=== PATIENT | male | born 1940 | race Caucasian/White ===

== ENCOUNTER 2023-07-19 23:33 | Inpatient (IN) | payer OTHER, SELFPAY ==
[2023-07-19 19:48] VITALS: BP 177/80
[2023-07-19 20:08] LABS: % Basophils 0.6 % (0-2); % Eosinophils 3.9 % (0-6); % Immature Granulocytes 0.2 % (0-0.5); % Lymphocytes 25.4 % (20.5-51.1); % Monocytes 10.8 % (1.7-9.3); % Neutrophils 59.1 % (42.2-75.2); Absolute Eosinophils 0.2 10^3/uL (0-0.7); Absolute Lymphocytes 1.4 10^3/uL (1.2-3.4); Absolute Monocytes 0.6 10^3/uL (0.1-0.6); Absolute Neutrophils 3.2 10^3/uL (1.4-6.5); Hematocrit 38.3 % (39.0-52.0); Hemoglobin 13.4 g/dL (13.0-18.0); Mean Corpuscular Hgb 31.4 pg (27.0-31.0); Mean Corpuscular Volume 89.7 fL (80.0-94.0); Mean Platelet Volume 8.8 fL (7.4-10.4); Nucleated Red Blood Cells % 0 % (-); Platelet Count 173 10^3/uL (130-400); Red Blood Cell Count 4.27 10^6/uL (4.70-6.10); White Blood Cell Count 5.4 10^3/uL (4.8-10.8)
[2023-07-19 20:29] VITALS: BMI 21.0
[2023-07-19 20:31] LABS: Troponin I < 0.012 ng/ml
[2023-07-19 20:33] LABS: ALT (SGPT) 22 U/L (0-50); AST (SGOT) 35 U/L (17-59); Albumin 4.4 g/dl (3.5-5.0); Alkaline Phosphatase 78 U/L (38-126); Blood Urea Nitrogen 25 mg/dl (9-20); Calcium 9.8 mg/dl (8.4-10.2); Carbon Dioxide 25 mmol/L (22-30); Chloride 101 mmol/L (98-107); Estimated Creatinine Clearance 45 ml/min; Glucose 92 mg/dl (70-99); Potassium 4.5 mmol/L (3.5-5.1); Sodium 136 mmol/L (135-145); Total Bilirubin 0.8 mg/dl (0.2-1.3); Total Protein 7.2 g/dl (6.3-8.2); eGFR > 60.00
--- NOTE | 2023-07-19 22:43 | ED.GENMED ---
History of Present Illness
General
Chief Complaint: Head Injury
Source: patient, spouse and family
Exam Limitations: none
Time Seen by Provider: 07/19/23 21:35
Nursing documentation reviewed up to this point in time: agreed with
Travel History
Have you had any contact with someone who has COVID-19?: No
Do you have any symptoms of coronavirus? Fever > 100 degrees, chills, cough, shortness of breath, sore throat, loss of taste or smell, muscle aches, or headache?: No
History of Present Illness
History of Present Illness:
83-year-old male with past medical history of left carotid enterectomy hypercholesteremia hypertension CAD Crohn's disease gout CVA, bradycardia presents to the ER for evaluation. Patient prior to arrival was sitting at his dinner table and
fainted falling out of his chair hitting his head on the wood floor. reports he was only out for few seconds. Patient is not able to describe what he was feeling. He denied feeling chest pain or shortness of breath he did not feel like he
was going to pass out. 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
Past History
Past History
ED Past Medical History: CAD and HTN
ED Past Surgical History: Cholecystectomy
Social History
Tobacco: Non-smoker
Review of Systems
Review of Systems
Allergies reviewed?: Yes
Other source history: family
All Other Systems: ROS reviewed and negative except as documented in HPI and ROS
Constitutional: Reports no symptoms; Denies fever, fatigue or chills
Respiratory: Reports no symptoms
Cardiac: Reports syncope; Denies chest pain, diaphoresis or palpitations
ABD/GI: Reports no symptoms
: Reports no symptoms
Musculoskeletal: Reports no symptoms
Skin: Reports no symptoms
Neurological: Reports headache; Denies dizzy, weakness or numbness
Psychiatric: Reports no symptoms
Phy Exam
General Physical Exam
General Presentation: no apparent distress
General age: appears stated age
General Skin: warm and dry
General Habitus: normal
General Mental: alert
General Hydration: appears well hydrated
Cardiovascular Exam
Cardiovascular Exam: regular rate/rhythm, no murmur and normal peripheral pulses
Pulmonary Exam
Pulmonary Exam: lungs clear and no respiratory distress
Neurological Exam
Neurological Exam: alert and oriented x3
Musculoskeletal Exam
Musculoskeletal Exam: other (left scalp hematoma )
Skin Exam
Skin Exam: normal color and warm/dry
Psychiatric Exam
Psychiatric Exam: normal mood/affect
Course
Orders/Labs/Results
Orders:
Orders
07/19/23 19:48
CT Head W/o Iv Contrast Urgent
Comment:
Reason For Exam: fall, head injury
07/19/23 19:49
Electrocardiogram (*1) Urgent
Reason for Study: Syncope
EKG- Treatment ONCE
07/19/23 19:56
Complete Blood Count/With Diff Urgent
Comprehensive Metabolic Panel Urgent
Troponin I Urgent
Abnormal Lab Results
07/19/23
19:56
RBC 4.27 L 10^6/uL
(4.70-6.10)
Hct 38.3 L %
(39.0-52.0)
MCH 31.4 H pg
(27.0-31.0)
Monocytes % 10.8 H %
(1.7-9.3)
BUN 25 H mg/dl
(9-20)
07/19/23 19:56
07/19/23 19:56
Vital Signs
Initial and Last Documented VS:
Initial Vital Signs
Temp Pulse Resp BP Pulse Ox
98.9 F 69 18 177/80 98
07/19/23 19:48 07/19/23 19:48 07/19/23 19:48 07/19/23 19:48 07/19/23 19:48
Last Documented Vital Signs
Temp Pulse Resp BP Pulse Ox
98.9 F 69 18 177/80 98
07/19/23 19:48 07/19/23 19:48 07/19/23 19:48 07/19/23 19:48 07/19/23 19:48
Automated Logistics Specialist consulted with Physician
Automated Logistics Specialist consulted with physician?: Yes
Name of Physician Consulted: pineda
MDM/Problems Addressed
MDM/Problems Addressed:
83 yr old male presents to the ER for evaluation of syncope. Patient was sitting at the dinner table and had a witnessed episode of syncope fell out of the chair hit his head on the wood floor. He was out for couple seconds. Patient presents
awake alert he is not able to tell me or explain why he passed out. He denies any actual chest pain or palpitations. He does have a history of stroke hypertension high cholesterol and history of carotid enterectomy. Daughter at bedside reports
that patient also had a history of bradycardia in the past and was told he may need a pacemaker in the future. With syncope and no clear cause of syncope concern for arrhythmia and will admit.
*Radiology
Radiology exam reviewed: radiology read reviewed
*Pulse Oximetry
Patient hypoxic: no
*EKG
Interpreted by ED Provider?: Yes
Interpretation: normal
Comparison EKG: no comparison EKG present
Heart Rate: 62
Rate: normal
Rhythm: sinus
Ischemia: no ischemia
*Critical Care Note
Total Time (30-74mins, 75-104mins- exclusive of procedures): Not Applicable
ED Attending Note
-
Portions of this chart may have been created with voice recognition software.� Occasional wrong word or��sound alike� substitutions may have occurred due to the inherent limitations of voice recognition software.
Discharge Plan
Departure
Patient Disposition: Admit
Date of Disposition: 07/19/23
Time of Disposition: 23:03
Admit to: Telemetry
Admit to doctor: htay
Presentation/result/management discussed w/ accepting MD/DO: Hospitalist
Patient with high blood pressure during this ER visit?: Yes
Condition: Fair
Covid-19: Not Applicable
Discharge Problem:
Syncope
Prescriptions:
No Action
amlodipine 5 mg Tablet
5 mg PO DAILY
aspirin 81 mg Tablet,Delayed Release (Dr/Ec)
81 mg PO DAILY
tamsulosin 0.4 mg Capsule
0.4 mg PO DAILY
acetaminophen 325 mg Tablet
650 mg PO Q4HPRN PRN (Reason: LEE, mild pain, or temp >100.4F) Qty: 30 0RF
atorvastatin 20 mg Tablet
20 mg PO QPM Qty: 30 0RF
Referrals:
Jhonny Yarbrough MD [Family Provider] -
Interventions
Interventions:
*Risk Screen - Suicide Last Done: 07/19/23 20:29
*General Assessment Last Done: 07/19/23 20:29
*Neglect/Abuse Screening Last Done: 07/19/23 20:29
*ED COVID-19 Vaccine History Last Done: 07/19/23 19:49
ED- Neurological Assessment Last Done: 07/19/23 20:33
ED-Skin Assessment Last Done: 07/19/23 20:33
Discharge Date and Time
Print Language: GAMBIAN
[2023-07-19 23:08] VITALS: BP 181/59
[2023-07-19] MEDS: TYLENOL 650 MG PO (23:11)
[2023-07-19] MEDS: NSS 1000 IV (23:11)
[2023-07-19 23:23] LABS: Urine Albumin Negative (Neg - Trace); Urine Bilirubin Negative (Negative); Urine Character Slightly Cloudy (Clear); Urine Color Yellow; Urine Glucose Negative (Negative); Urine Ketone Negative (Negative); Urine Leukocyte Trace (Negative); Urine Nitrite Negative (Negative); Urine Occult Blood Negative (Negative); Urine Specific Gravity 1.015 (<1.030); Urine Urobilinogen Negative (Neg - 1+)
--- NOTE | 2023-07-19 23:41 | HPS.HSE ---
Family Physician
-
Family Physician: Jhonny Yarbrough
Chief Complaint
-
passed out and hit head
History of Present Illness
83M HX Rt MCA stroke in setting of symptomatic ICAS s/p Rt CEA , HX Bilateral ICA stenosis, HLD, HTN Known to vascular service, HLD on statin, chr bradycardia seen at ER for evaluation of syncope and head injury.
Per Patient
Passed out for ? few seconds while siting at the dinning table
falling out of his chair hitting his head on the wood floor.
Denied prodromal symptoms - just felt not well
No prior HX syncope
Denied any increased dose amlodipine
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
ROS
Denied diaphoresis, dizziness prior to syncope
Denied feeling chest pain or shortness of breath
Medical History
Past Medical History
Past Medical History: Reports Other (Coronary Artery Disease Essential Hypertension Hyperlipemia Crohn's Disease BPH Gout)
Past Surgical History: Reports Other
Additional Past Surgical History:
Cholecystectomy
CABG
Rt CEA
Social History
Tobacco: Non-smoker
Alcohol: None
Drug: None
Family History
Family History: Not pertinent
Allergies / Home Medications
Allergies reflects when Allergies were last updated in [facility].
Home Medications with original date entered in [facility]
Allergy/Medication List:
Allergies
Allergy/AdvReac Type Severity Reaction Status Date / Time
No Known Allergies Allergy Verified 07/19/23 19:48
Home Medications
amlodipine 5 mg tablet 5 mg PO DAILY Blood pressure 04/07/22
aspirin 81 mg tablet,delayed release 81 mg PO DAILY Blood clot prevention/tx 04/07/22
tamsulosin 0.4 mg capsule 0.4 mg PO DAILY Urinary issue 04/07/22
acetaminophen 325 mg tablet 650 mg (2 x 325 mg) PO Q4HPRN PRN LEE, mild pain, or temp >100.4F #30 tabs 04/10/22
atorvastatin 20 mg tablet 20 mg PO QPM #30 tabs 04/10/22
Review of Systems
-
Constitutional: Reports No Symptoms
EENT: Reports No Symptoms
Respiratory: Reports No Symptoms
Cardiac: Reports No Symptoms
Abdomen/GI: Reports No Symptoms
: Reports No Symptoms
Musculoskeletal: Reports No Symptoms
Skin: Reports No Symptoms
Neurological: Reports See HPI
Endocrine: Reports No Symptoms
Hematologic/Lymphatic: Reports No Symptoms
Psych: Reports No Symptoms
Physical Exam
Vital Signs
Vital Signs
Temp Pulse Resp BP Pulse Ox
98.9 F 63 18 181/59 96
07/19/23 19:48 07/19/23 23:08 07/19/23 23:08 07/19/23 23:08 07/19/23 23:08
Physical Exam
General: No Apparent Distress and Conversant
HEENT: Other (ACUTE SCALP SOFT TISSUE HEMATOMA over the anterolateral left frontal bone.)
Respiratory: Clear
Cardiac: S1/S2, Regular Rhythm and Bradycardia
GI: Soft, Non Tender, Non Distended and Normal Bowel Sounds
Genito-urinary: Deferred by me
Musculoskeletal: No Edema
Skin: Warm and Dry
Neuro: AO x 3
Psych: Calm
Laboratory Results
-
07/19/23 19:56
07/19/23 19:56
Laboratory Results
Total Bilirubin 0.8 mg/dl (0.2-1.3) 07/19/23 19:56
AST 35 U/L (17-59) 07/19/23 19:56
ALT 22 U/L (0-50) 07/19/23 19:56
Alkaline Phosphatase 78 U/L (38-126) 07/19/23 19:56
Troponin I < 0.012 ng/ml 07/19/23 19:56
Data Reviewed
-
CT Scan: Report Reviewed by me
Medical Tests (Nuc Med, Echo, EKG etc): Report Reviewed by me
Lab Data: Labs Reviewed by me
Old Records: Reviewed
Impression/Plan
-
Reviewed VS: Afebrile HR 69 ( base line mid 40s to mid 50s) BP 177/80
Data
Unremarkable CBC
Unremarkable CMP
NEG TPNI
Pending TSH
EKG
NORMAL SINUS RHYTHM
NORMAL ECG
WHEN COMPARED WITH ECG OF 13-AUG-2022 14:12,
NO SIGNIFICANT CHANGE WAS FOUND
04/07/22 TTE
Nl LVEF 60-65
Mild , Mild AR
Mild concentric LVH
HCT:
1. LARGE 5.7 cm ACUTE SCALP SOFT TISSUE HEMATOMA over the anterolateral left frontal bone.
2. No CT evidence for acute intracranial hemorrhage or calvarial fracture.
3. Mild white matter leukoaraiosis in both cerebral hemispheres.
4. Mild diffuse cerebral and cerebellar volume loss.
04/15/23 US Cerebrovascular
Widely patent bilateral carotid endarterectomy sites with no evidence of recurrent stenosis. Antegrade flow bilateral vertebral arteries.
Last hospitalist admission: 04/08/22 - 04/10/22 DC Dxs
Acute Rt MCA stroke
Symptomatic right internal carotid artery stenosis status post right enterectomy
Bilateral internal carotid artery stenosis
Essential Hypertension
ASSESSMENT & PLAN
Syncope complicated with soft scalp tissue hematoma injury s/p strike head; NEG HCT
Hemodynamically stable
No significant prodromal symptoms
DDx; Primary Cardiac origin vs Primary Neurogenic vasovagal
- Recent Vasc ualr US shows widely patent bilateral carotid endarterectomy sites with no evidence of recurrent stenosis.
- Ortho VSS
- TLM monitor
- Neuro and Card consult
Coronary Artery Disease s/p CABG
- Continue Aspirin
Essential Hypertension
- on Amlodipine
- no longer on metoprolol due to bradycardia
Hyperlipidemia
-Continue Lipitor
Crohn's Disease
-Continue Prednisone
BPH
-Continue Flomax
DVT Px: SCD
Code: Full
IP TLM
[2023-07-20] VITALS (12 sets, daily range): BP systolic 122–159; BP diastolic 62–73; PULSE 55–72; BMI 21.3; BMI 20.1
--- NOTE | 2023-07-20 00:01 | EDRN ---
the pt ambulated independently to the bathroom with steady gait. denies feeling dizzy or lightheaded with ambulation.
[2023-07-20 00:44] LABS: Urine Amorphous Seen; Urine Bacteria Few (Negative); Urine Red Blood Cell 0-2 /HPF (0-2); Urine Squamous Cell 0-2 /LPF (Few); Urine White Cell 0-2 /HPF (0-5)
[2023-07-20 05:31] LABS: Hematocrit 36.1 % (39.0-52.0); Hemoglobin 12.8 g/dL (13.0-18.0); Mean Corp Hgb Conc. 35.5 g/dL (33.0-37.0); Mean Corpuscular Hgb 31.8 pg (27.0-31.0); Mean Corpuscular Volume 89.6 fL (80.0-94.0); Platelet Count 145 10^3/uL (130-400); Red Blood Cell Count 4.03 10^6/uL (4.70-6.10); White Blood Cell Count 4.6 10^3/uL (4.8-10.8)
[2023-07-20 06:03] LABS: Blood Urea Nitrogen 19 mg/dl (9-20); Calcium 8.9 mg/dl (8.4-10.2); Carbon Dioxide 22 mmol/L (22-30); Chloride 108 mmol/L (98-107); Estimated Creatinine Clearance 65 ml/min; Glucose 87 mg/dl (70-99); Potassium 4.2 mmol/L (3.5-5.1); Sodium 135 mmol/L (135-145); eGFR > 60.00
[2023-07-20 06:33] LABS: TSH Reflex To Free T4 1.82 uIU/ml (0.47-4.68)
[2023-07-20] MEDS: FLOMAX 0.400000000000000022 MG PO (08:53)
[2023-07-20] MEDS: NORVASC 5 MG PO (08:53)
[2023-07-20] MEDS: ASPIR LOW (ENTERIC COATED) 81 MG PO (08:53)
--- NOTE | 2023-07-20 12:10 | CON.CAR ---
Addendum entered and electronically signed by Fabian Pino MD 07/20/23 15:29:
Attending addendum: Patient seen and examined. PA note reviewed and findings confirmed by me. Briefly, Mr. Tyler is an 83-year-old gentleman with a past medical history notable for coronary artery disease and remote history of coronary artery
bypass grafting in 2004. In April 2022 he experienced a CVA and subsequently underwent right carotid endarterectomy for symptomatic stenosis and returned in August 2022 for elective left carotid endarterectomy for treatment of high-grade stenosis.
He was noted to have episodes of Wenckebach and underwent M cot monitoring for 4 days post discharge which was rather unrevealing. He follows with Dr. Syed Madsen in the electrocardiograms and their office revealed a narrow complex bradycardic
heart rhythm. The patient states that over the past week or 2 he has been active outside. 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 He repaired a tractor that was broken. A few weeks ago the patient reports that he
was sitting at the table when he suddenly felt that he could not chew and experienced a presyncopal event. Fortunately, his symptoms quickly passed. He experienced no additional problem until the evening when he was admitted. He was again sitting
at the kitchen table eating dinner when he suddenly became very dizzy and experienced a loss of consciousness falling to the ground striking his left frontal orbital region with significant ecchymosis and swelling. He also experienced some left
thoracic chest discomfort after the fall. The prodrome was very limited with sudden syncope. He denies any chest discomfort and his initial troponin was undetectable.
Physical exam:
GEN: AAO x 3. No acute distress
HEENT: Large ecchymotic and edematous area over the left orbit with trauma sustained in sudden fall. Left eye is swollen shut.
CHEST: Painful to palpation
LUNGS: clear to bases bilaterally. No wheezing or rhonchi
CV: Regular rate and rhythm. Normal S1/S2. No S3, No S4. Murmur: Soft I/ murmur USB
ABD : Soft, NT, ND, No HSM. Bowel sounds are present.
EXT: No CCE
NEURO: No focal neurologic deficits
ECG: Sinus bradycardia
-04/07/2022: Echo: LV: Normal size and function. Mild concentric LVH. No WMA. EF 60-65%. RV: Dilated, LA: Normal, RA: Normal, MV: Mild-moderate MR, AV: [place]. Thickened and calcified the mean aortic valve gradient is 9 mmHg with peak
velocity of 2.2 m/s. Mild AI. TV: Mild TR with estimated PAP 30-35 mmHg, TV: Mild TR
Impression
-Syncope with unguarded fall
-Narrow complex sinus bradycardia
-Mild aortic stenosis
-History of coronary artery disease with remote bypass grafting
-History of right and left carotid endarterectomy
-Hypertension
-Hyperlipidemia
-Polymyalgia rheumatica on chronic steroid therapy
Recommendation
-Repeat troponin
-Check echocardiogram to assess LVEF and valvular heart disease
-Discussed with EP service. Will likely proceed with placement of long-term air sampling and monitoring/LINQ device
-Telemetry monitoring
-Further management decisions based on results from the above studies
Original Note:
Consultation
Consultation Request
Date/Time Consultation Requested: 07/20/23 at 0012
Date/Time Consultation Performed: 07/20/23 at 1100
Requesting Provider: Dr. Ledbetter
Performing Provider: Dr. Pino
Reason for Consultation: Syncope, fall
Medical History
-
History of Present Illness:
Patient caem to [facility] from home last night after syncope and a fall, cardiology has been consulted for h/o Wenckebach and 4 second pause. Patient follows with Dr. Madsen, but has been to in the setting of CVA in 04/2022 and subsequent B/L CEA.
After his left CEA 08/12/22 patient was noted to have Wenckebach and a 4 second pause so [facility] was consulted. Patient was recommended to stop his Toprol XL and to wear an outpatient monitor, both of which he did and monitor report noted above without
significant bradycardia or heart block. Patient says that a few weeks ago he was seated at the table and eating when he suddenly felt like he couldn't chew and felt tingling all over, but paused and the feelings passed. 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 Then last night he was sitting and eating dinner and he felt like he did a few weeks ago and the next thing he remembers is waking up on the floor. His called 911 and in [facility] his left eye and forehead were
swollen and ecchymotic concerning for an unguarded fall. CT head without intracranial hemorrhage, but he has a large hematoma left forehead. No further episodes of syncope. No recent h/o falls or unexplained injuries.
PMH:
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
Sinus bradycardia
h/o Right CEA 04/09/22 and then Left CEA 08/12/22
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
CAD s/p CABG approx 2004
HTN
Hyperlipidemia
History of Crohn's
PMR, on chronic prednisone therapy
Gout
BPH
Past Medical History
Past Medical History: Other (in HPI)
Past Surgical History: Cardiac (CABG approx 2004) and Other (right CEA 04/09/22, left CEA 08/12/22)
Social History
Tobacco: Non-Smoker
Alcohol: None
Drug: None
Personal:
Living: With Family
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
Family History
Family History: CAD
Allergies / Home Medications
Allergy/AdvReac Type Severity Reaction Status Date / Time
No Known Allergies Allergy Verified 07/19/23 19:48
�Medication �Instructions �Recorded �Confirmed �Type
amlodipine 5 mg tablet 5 mg PO DAILY Blood pressure 04/07/22 07/19/23 History
aspirin 81 mg tablet,delayed 81 mg PO DAILY Blood clot 04/07/22 07/19/23 History
release prevention/tx
tamsulosin 0.4 mg capsule 0.4 mg PO DAILY Urinary issue 04/07/22 07/19/23 History
acetaminophen 325 mg tablet 650 mg (2 x 325 mg) PO Q4HPRN PRN 04/10/22 07/19/23 Rx
LEE, mild pain, or temp >100.4F #30
tabs
atorvastatin 20 mg tablet 20 mg PO QPM #30 tabs 04/10/22 07/19/23 Rx
Review of Systems
-
History Source: Patient
All other systems: Negative unless noted
Physical Exam
Vital Signs
Temp Pulse Resp BP Pulse Ox
98.9 F 49 18 154/63 98
07/19/23 19:48 07/20/23 06:30 07/20/23 06:30 07/20/23 06:00 07/20/23 09:12
GEN: No distress, awake, alert and oriented x3
HEENT: Left eye swollen and ecchymotic, left forehead swollen and bruised
LUNGS: CTA B/L, no wheezes or rales
CV: Reg, S1/S2, no murmur
ABD: soft, BS+, NT, ND
EXT: No clubbing, cyanosis, lesions or edema B/L
NEURO: Gross non-focal
SKIN: Warm, dry and pink. No rash
Lab Results
07/20/23 05:25
07/20/23 05:25
Troponin I < 0.012 ng/ml 07/19/23 19:56
Impression / Plan
-
PCP: Dr. Uday Yarbrough
Cardiology: Dr. Madsen
Impression:
Syncope with unguarded fall
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
Sinus bradycardia
h/o Right CEA 04/09/22 and then Left CEA 08/12/22
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
CAD s/p CABG approx 2004
HTN
Hyperlipidemia
History of Crohn's
PMR, on chronic prednisone therapy
Gout
BPH
Exercise nuclear stress test 07/16/21: ATC study, Completed 7 minutes 30 seconds Gilbert protocol reaching 70% maximum predicted heart rate, mildly reduced attenuation inferior segment consistent with possible diaphragmatic attenuation, no evidence of
significant myocardial infarction or ischemia
5 day monitor 08/2022: ATC study, no heart block, no arrhythmia
Echo 06/25/22: ATC study, EF 50 to 55%, without regional wall motion abnormality, mild aortic regurgitation, mild aortic valve sclerosis without stenosis, mild MR
Plan:
-Patient caem to [facility] from home last night after syncope and a fall, cardiology has been consulted for h/o Wenckebach and 4 second pause. Patient follows with Dr. Madsen, but has been to in the setting of CVA in 04/2022 and subsequent B/L CEA.
After his left CEA 08/12/22 patient was noted to have Wenckebach and a 4 second pause so [facility] was consulted. Patient was recommended to stop his Toprol XL and to wear an outpatient monitor, both of which he did and monitor report noted above without
significant bradycardia or heart block. Patient says that a few weeks ago he was seated at the table and eating when he suddenly felt like he couldn't chew and felt tingling all over, but paused and the feelings passed. 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 Then last night he was sitting and eating dinner and he felt like he did a few weeks ago and the next thing he remembers is waking up on the floor. His called 911 and in [facility] his left eye and forehead were
swollen and ecchymotic concerning for an unguarded fall. CT head without intracranial hemorrhage, but he has a large hematoma left forehead. No further episodes of syncope. No recent h/o falls or unexplained injuries.
-Patient with abrupt syncope, no prodrome and an unguarded fall with significant eye and forehead ecchymosis and hematoma. There is also a h/o Wenckebach and 4 second pause 08/2022 after left CEA and no heart block seen on subsequent monitor.
-ECG and tele reviewed by me today show SR. He had a 2.5 second pause around 0115 this AM while presumably sleeping.
-Suspect patient will need a PPM.
-EF was preserved by echo 06/25/22.
-Reviewed PPM procedure and post-PPM restrictions. 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 He is left-handed.
--- NOTE | 2023-07-20 13:34 | W.PN.HOSP.TC ---
Today's Communication/Plan
-
possible PPM placement
continue other care
Assessment / Plan
Assessment / Plan
1. Syncope
Sinus Bradycardia
-Orthostatic vitals negative
-CT head negative for acute abnormality
-Patient have bradycardia although not on any rate control medication. Patient stated to be chronic
-EKG showing sinus rhythm
-Carotid Doppler without any new critical narrowing
-Cardiology evaluated and will require evaluation for pacemaker placement
2. Head injury and scalp hematoma
-CT head negative for intracranial hemorrhage
-Left eye eyedrops ordered
3. Coronary Artery Disease s/p CABG
- Continue Aspirin
4. Essential Hypertension
- on Amlodipine
- no longer on metoprolol due to bradycardia
h/o Right MCA stroke
Right internal carotid artery stenosis s/p CEA
Hyperlipidemia
Crohn's Disease -Continue Prednisone
BPH -Continue Flomax
DVT Px: SCD
Code: Full
Anticipated Discharge: 24 - 48 hours
Subjective/Interval History
-
Date of Service: July 20, 2023
Resting comfortably in chair
Denies having any palpitation/shortness of breath/dizziness
No other acute issues reported
Objective Data
-
Labs:
Laboratory Results
07/20/23
05:25
WBC 4.6 L
Hgb 12.8 L
Hct 36.1 L
Plt Count 145
Sodium 135
Potassium 4.2
Chloride 108 H
Carbon Dioxide 22
BUN 19
Creatinine 0.7
Glucose 87
Calcium 8.9
Vital Signs:
Vital Signs
Temp Pulse Resp BP Pulse Ox
98.9 F 49 18 154/63 98
07/19/23 19:48 07/20/23 06:30 07/20/23 06:30 07/20/23 06:00 07/20/23 09:12
Review of Systems
-
Respiratory: Reports No Symptoms
Cardiac: Reports No Symptoms
Abdomen/GI: Reports No Symptoms
Physical Exam
-
General: No Apparent Distress and Comfortable
HEENT: Other (Left scalp hematoma, left periorbital ecchymosis); Negative Oxygen
Respiratory: Clear to Auscultation
Cardiac: S1/S2 and Bradycardic; Negative Murmur or Rub
GI: Soft, Nontender and Nondistended
Musculoskeletal: No Edema
Neuro: Awake, Alert, Oriented, No Motor Deficits and Nonfocal/Grossly Intact
Psych: Calm
--- NOTE | 2023-07-20 13:49 | PTOTSP ---
Patient independent with all functional mobility and ambulation. No skilled PT needs.
[2023-07-20] MEDS: LIPITOR 20 MG PO (17:06)
[2023-07-20 18:32] LABS: Troponin I < 0.012 ng/ml
[2023-07-21 03:40] VITALS: BP 135/64
--- NOTE | 2023-07-21 04:57 | DOWNTIME ---
There was a [employer] Client Power D[employer]en [employer] Downtime on 07/21/2023 from 0100 to 07/21/2023 at 0439. Downtime documentation of patient's care, including medication administrations, has been reconciled in the electronic record per guidelines. Refer to the
patient's paper chart under the miscellaneous tab to see printed paper medication records and downtime forms.
[2023-07-21 06:02] LABS: Hematocrit 39.1 % (39.0-52.0); Hemoglobin 13.4 g/dL (13.0-18.0); Mean Corp Hgb Conc. 34.3 g/dL (33.0-37.0); Mean Corpuscular Hgb 31.1 pg (27.0-31.0); Mean Corpuscular Volume 90.7 fL (80.0-94.0); Mean Platelet Volume 9.1 fL (7.4-10.4); Platelet Count 165 10^3/uL (130-400); Red Blood Cell Count 4.31 10^6/uL (4.70-6.10); Red Cell Dist. Width 13.9 % (11.5-14.5); White Blood Cell Count 5.7 10^3/uL (4.8-10.8)
[2023-07-21 06:32] LABS: Blood Urea Nitrogen 20 mg/dl (9-20); Calcium 9.1 mg/dl (8.4-10.2); Carbon Dioxide 22 mmol/L (22-30); Chloride 108 mmol/L (98-107); Estimated Creatinine Clearance 54 ml/min; Glucose 89 mg/dl (70-99); Potassium 4.2 mmol/L (3.5-5.1); Sodium 134 mmol/L (135-145); eGFR > 60.00
[2023-07-21 07:14] VITALS: BP 151/77
[2023-07-21] MEDS: FLOMAX 0.400000000000000022 MG PO (07:15)
[2023-07-21] MEDS: NORVASC 5 MG PO (07:15)
[2023-07-21] MEDS: ASPIR LOW (ENTERIC COATED) 81 MG PO (07:15)
--- NOTE | 2023-07-21 10:08 | W.PN.CARDCBS ---
Today's Communication / Plan
-
Pt for LINQ today
Reviewed procedure with pt and family in detail
2 short < 3 pause this AM.
Reviewed with EP
Discussed that if LINQ shows high grade block in the future that he would be considered for PPM at that time.
He knows to contact his design agent with any recurrent symptoms.
Echo reviewed and EF is preserved.
Outpt cardiac follow up with ATC.
Impression / Plan
-
PCP: Dr. Uday Yarbrough
Cardiology: Dr. Madesn
Impression:
Syncope with unguarded fall
Sinus bradycardia
h/o Right CEA 04/09/22 and then Left CEA 08/12/22
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
CAD s/p CABG approx 2004
HTN
Hyperlipidemia
History of Crohn's
PMR, on chronic prednisone therapy
Gout
BPH
Exercise nuclear stress test 07/16/21: ATC study, Completed 7 minutes 30 seconds Gilbert protocol reaching 70% maximum predicted heart rate, mildly reduced attenuation inferior segment consistent with possible diaphragmatic attenuation, no evidence of
significant myocardial infarction or ischemia
5 day monitor 08/2022: ATC study, no heart block, no arrhythmia
Echo 06/25/22: ATC study, EF 50 to 55%, without regional wall motion abnormality, mild aortic regurgitation, mild aortic valve sclerosis without stenosis, mild MR
Echo July 20 2023: EF 60-65%. Mild concentric LVH.Mild mitral regurgitation. Mild aortic stenosis. The mean aortic valve gradient is 10 mmHg and peak velocity is 2.3
m/s. Aortic valve area is 1.5 cm2. Mild aortic insufficiency. Mild tricuspid regurgitation with estimated pulmonary artery systolic pressures of 30-35 mmHg
When compared to the most recent echocardiogram from 04/07/2022, there has been no significant change
Plan:
Pt for LINQ today
Reviewed procedure with pt and family in detail
2 short < 3 pause this AM.
Reviewed with EP
Discussed that if LINQ shows high grade block in the future that he would be considered for PPM at that time.
He knows to contact his design agent with any recurrent symptoms.
Echo reviewed and EF is preserved.
Outpt cardiac follow up with ATC.
HPI: [facility] from home last night after syncope and a fall, cardiology has been consulted for h/o Wenckebach and 4 second pause. Patient follows with Dr. Madsen, but has been to in the setting of CVA in 04/2022 and subsequent B/L
CEA. After his left CEA 08/12/22 patient was noted to have Wenckebach and a 4 second pause so [facility] was consulted. Patient was recommended to stop his Toprol XL and to wear an outpatient monitor, both of which he did and monitor report noted above
without significant bradycardia or heart block. Patient says that a few weeks ago he was seated at the table and eating when he suddenly felt like he couldn't chew and felt tingling all over, but paused and the feelings passed. 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 Then last night he was sitting and eating dinner and he felt like he did a few weeks ago and the next thing he remembers is waking up on the floor. His called 911 and in [facility] his left eye and
forehead were swollen and ecchymotic concerning for an unguarded fall. CT head without intracranial hemorrhage, but he has a large hematoma left forehead. No further episodes of syncope. No recent h/o falls or unexplained injuries.
Attending addendum: Patient seen and examined. PA note reviewed and findings confirmed by me. Briefly, Mr. Tyler is an 83-year-old gentleman with a past medical history notable for coronary artery disease and remote history of coronary artery
bypass grafting in 2004. In April 2022 he experienced a CVA and subsequently underwent right carotid endarterectomy for symptomatic stenosis and returned in August 2022 for elective left carotid endarterectomy for treatment of high-grade stenosis.
He was noted to have episodes of Wenckebach and underwent M cot monitoring for 4 days post discharge which was rather unrevealing. He follows with Dr. Syed Madsen in the electrocardiograms and their office revealed a narrow complex bradycardic
heart rhythm. The patient states that over the past week or 2 he has been active outside. 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 He repaired a tractor that was broken. A few weeks ago the patient reports that he
was sitting at the table when he suddenly felt that he could not chew and experienced a presyncopal event. Fortunately, his symptoms quickly passed. He experienced no additional problem until the evening when he was admitted. He was again sitting
at the kitchen table eating dinner when he suddenly became very dizzy and experienced a loss of consciousness falling to the ground striking his left frontal orbital region with significant ecchymosis and swelling. He also experienced some left
thoracic chest discomfort after the fall. The prodrome was very limited with sudden syncope. He denies any chest discomfort and his initial troponin was undetectable.
Progress Note - Biomedical Engineering Director
Subjective
Date of Service: July 21, 2023
Pt seen and examined. No complaints. No chest pain or shortness of breath.
Objective
Labs:
07/21/23 05:18
07/21/23 05:18
Labs
Hgb 13.4 g/dL (13.0-18.0) 07/21/23 05:18
Hct 39.1 % (39.0-52.0) 07/21/23 05:18
Plt Count 165 10^3/uL (130-400) 07/21/23 05:18
Sodium 134 mmol/L (135-145) L 07/21/23 05:18
Potassium 4.2 mmol/L (3.5-5.1) 07/21/23 05:18
BUN 20 mg/dl (9-20) 07/21/23 05:18
Creatinine 0.8 mg/dL (0.7-1.3) 07/21/23 05:18
Glucose 89 mg/dl (70-99) 07/21/23 05:18
Troponins
07/19/23 07/20/23
19:56 17:57
Troponin I < 0.012 < 0.012
Vital Signs and I&O:
Vital Signs
Temp Pulse Resp BP Pulse Ox
97.5 F 54 16 151/77 95
07/21/23 07:14 07/21/23 07:15 07/21/23 07:14 07/21/23 07:15 07/21/23 07:14
Vital Signs
Temp Pulse Resp BP Pulse Ox
97.5 F 54 16 151/77 95
07/21/23 07:14 07/21/23 07:15 07/21/23 07:14 07/21/23 07:15 07/21/23 07:14
Intake & Output
07/19/23 07/20/23 07/21/23 07/22/23
06:59 06:59 06:59 06:59
Intake Total 120 / 120
Balance 120 / 120
Physical Exam
Physical Exam
General: No acute distress, AAOX3, facial ecchymosis
Neck: Negative JVD
Heart: Regular, Negative S3 positive S1/S2, Negative S4, No murmur
Lungs: CTA b/l, negative wheezes/rales/rhonchi
Abd: Positive BS, NT/ND, neg rebound/rigidity/guarding
Ext: Negative cyanosis/clubbing/edema
Neuro: nonfocal
[2023-07-21 11:20] VITALS: BP 143/66
[2023-07-21] MEDS: CILOXAN 0.3% OPHTHALMIC SOLUTION 1 DROP OPHTH (12:32)
--- NOTE | 2023-07-21 14:35 | W.PN.HOSP.TC ---
Today's Communication/Plan
-
d/c after LINQ device placement
Assessment / Plan
Assessment / Plan
1. Syncope
Sinus Bradycardia
-Orthostatic vitals negative
-CT head negative for acute abnormality
-Patient have bradycardia although not on any rate control medication. Patient stated to be chronic
-EKG showing sinus rhythm
-Echo showed preserved EF. mild .
-Carotid Doppler without any new critical narrowing
-Patient going for Linq device placement today
2. Head injury and scalp hematoma
-CT head negative for intracranial hemorrhage
-Left eye eyedrops ordered
3. Coronary Artery Disease s/p CABG
- Continue Aspirin
4. Essential Hypertension
- on Amlodipine
- no longer on metoprolol due to bradycardia
h/o Right MCA stroke
Right internal carotid artery stenosis s/p CEA
Hyperlipidemia
Crohn's Disease -Continue Prednisone
BPH -Continue Flomax
DVT Px: SCD
Code: Full
Case discussed with cardiology service
More than 30 minutes spent in discharge including
Final examination of the patient
Summarizing hospital stay
Instructions for continuing care to all relevant caregivers
Preparation of discharge records, prescriptions, and referral forms
Total time spent (in minutes): 39 mins
Anticipated Discharge: Today
Subjective/Interval History
-
Date of Service: July 21, 2023
No new complaints overnight
No further episode of dizziness/syncope
Objective Data
-
Labs:
Laboratory Results
07/21/23
05:18
WBC 5.7
Hgb 13.4
Hct 39.1
Plt Count 165
Sodium 134 L
Potassium 4.2
Chloride 108 H
Carbon Dioxide 22
BUN 20
Creatinine 0.8
Glucose 89
Calcium 9.1
Vital Signs:
Vital Signs
Temp Pulse Resp BP Pulse Ox
98.4 F 59 16 143/66 96
07/21/23 11:20 07/21/23 11:20 07/21/23 11:20 07/21/23 11:20 07/21/23 11:20
I&O
07/20/23 07/21/23 07/22/23
06:59 06:59 06:59
Intake Total 120 / 120
Balance 120 / 120
Review of Systems
-
Respiratory: Reports No Symptoms
Cardiac: Reports No Symptoms
Abdomen/GI: Reports No Symptoms
Physical Exam
-
General: No Apparent Distress and Comfortable
HEENT: Other (Left scalp hematoma, left periorbital ecchymosis); Negative Oxygen
Respiratory: Clear to Auscultation
Cardiac: S1/S2 and Bradycardic; Negative Murmur or Rub
GI: Soft, Nontender and Nondistended
Musculoskeletal: No Edema
Neuro: Awake, Alert, Oriented, No Motor Deficits and Nonfocal/Grossly Intact
Psych: Calm
--- NOTE | 2023-07-21 14:53 | CM ---
Alert awake oriented patient who lives with his Kelsi on a farm with 1 step to enter and 11 steps to bed bathroom. He was eating dinner and fainted.HE is independent in driving and all activities of daily living.Offered VN he declined. No
adaptive devices. His will drive him home. He is having a Linq device placed.
No SNF/DH VN hx
Pharmacy [facility]
PCP Dr Uday Yarbrough
PLAN Home no needs
--- NOTE | 2023-07-21 15:28 | ITS.CL.IMPLP ---
Music Typographer - Implant Loop
Implant Loop
Procedure Report:
LINQ IMPLANTED LOOP RECORDER
Date of Procedure: July 21, 2023
Primary Care Physician: Dr. Uday Yarbrough
Primary Dredge Or Barge Shore Hand: Dr. Syed Madsen
Proocedure performed:
1. Implant LINQ loop recorder
Indication for procedure: Unexplained syncope
Description of procedure: After informed consent was obtained,'time out' was called and confirmed, the patient was prepped and draped in a sterile fashion. Lidocaine with epi was used for local anesthesia. A punch incision was made in the fourth
intercostal space midclavicular line. The LINQ device was placed using the placement tool. The punch site was covered with steri-strips.
Complications: None
RECOMMENDATIONS:
1: Routine post LINQ placement wound check, device check and clinical follow-up.
Copy to: Dr. Uday Yarbrough
[2023-07-21 15:53] VITALS: BP 142/67
--- NOTE | 2023-07-22 17:08 | W.DCSUMMARY ---
Discharge Summary
Discharge Data
Date of Admission: 07/19/23
Date of Discharge: 07/21/23
-
Pending Results: No
Hospital Course
Discharging Physician : Dr Prasanna Ledbetter
Disposition : Home
Primary care physician : Dr Jhonny Yarbrough
Principal Discharge diagnosis :
Syncope
Sinus bradycardia
Head injury with scalp hematoma
Chronic Discharge diagnosis :
Coronary disease with history of bypass
Essential hypertension
History of right middle cerebral artery area of stroke
Right internal carotid artery stenosis post endarterectomy
Hyperlipidemia
Crohn's disease
Benign prostatic hyperplasia
Hospital Course :
Patient is a 83-year-old male with above-mentioned past medical history came to ER with brief syncope. Patient passed out while eating his dinner ended up hitting head and causing swelling/ecchymosis of left scalp and eye. In ER CT head was done
and negative for any intracranial hemorrhage. Patient did have a large 5.7 cm acute left scalp hematoma and surrounding swelling. Patient have history of stroke although undergone endarterectomy in the past for carotid stenosis. Repeat carotid
Doppler was done and ruled out any critical narrowing. EKG was showing normal sinus rhythm with occasional sinus bradycardia. Cardiology was involved in care and based on telemetry finding recommended implantable loop recorder placement. Post
uneventful LINQ placement patient was discharged home.
Important imaging findings :
None
Procedure findings :
None
Discharge Plan
-
Patient Disposition: Home (Routine Discharge)
Discharge Diagnosis/Procedures: Syncope, sinus bradycardia, linq device implant
Condition: Fair
Diet: Regular
Activity: As tolerated
Driving Restrictions: No driving
Bathing Restrictions: OK to Shower
Stand Alone Forms: DC Inst - Implanted Device
Referrals:
[facility] [Provider Group] - 07/23/23 10:15 am (Post device incision check appointment)
Jhonny Yarbrough MD [Family Provider] - in one week
Prescriptions:
New
ciprofloxacin HCl 0.3 % Drops
1 drp LEFT EYE Q4H Qty: 5 0RF
Continued
amlodipine 5 mg Tablet
5 mg PO DAILY
aspirin 81 mg Tablet,Delayed Release (Dr/Ec)
81 mg PO DAILY
tamsulosin 0.4 mg Capsule
0.4 mg PO DAILY
acetaminophen 325 mg Tablet
650 mg PO Q4HPRN PRN (Reason: LEE, mild pain, or temp >100.4F) Qty: 30 0RF
atorvastatin 20 mg Tablet
20 mg PO QPM Qty: 30 0RF
Discharge Orders:
Discharge Patient (As Directed); Ordered 07/21/23
Ordered By: Prasanna Ledbetter
Discharge Date and Time
Discharge Date/Time: 07/21/23 16:15
Print Language: BENGALI
== END 2023-07-21 16:15 | disposition home or self-care (01) | DRG 261 ==
LOC: 3 WEST ACU 23:33
PROVIDERS: Internal Medicine Interventional Cardiology; Nurse Practitioner; Registered Nurse; ADMITTING PHYSICIAN Internal Medicine; ATTENDING PHYSICIAN Hospitalist; CONSULT PHYSICIAN Nuclear Medicine Nuclear Cardiology; EMERGENCY PHYSICIAN Student in an Organized Health Care Education/Training Program; FAMILY PHYSICIAN Family Medicine
PROC: 0JH632Z Insertion of Monitoring Device into Chest Subcutaneous Tissue and Fascia, Percutaneous Approach (ICD-10-PCS; 2023-07-21)
DX: R00.1 Bradycardia, unspecified (principal); K50.90 Crohn's disease, unspecified, without complications; S00.03XA Contusion of scalp, initial encounter; W07.XXXA Fall from chair, initial encounter; R55 Syncope and collapse; I25.10 Atherosclerotic heart disease of native coronary artery without angina pectoris; E78.5 Hyperlipidemia, unspecified; N40.0 Benign prostatic hyperplasia without lower urinary tract symptoms; M35.3 Polymyalgia rheumatica; I10 Essential (primary) hypertension; M10.9 Gout, unspecified; Z86.73 Personal history of transient ischemic attack (TIA), and cerebral infarction without residual deficits; Z95.1 Presence of aortocoronary bypass graft; Z79.82 Long term (current) use of aspirin; Z79.52 Long term (current) use of systemic steroids
CPT/HCPCS: 33285; 70450; 80048; 80053; 81003; 81015; 84443; 84484; 85025; 85027; 93005; 93306; 93880; 99285; C1764

== ENCOUNTER → 2023-10-18 07:39 | Outpatient (REF) | payer OTHER, SELFPAY ==
[2023-10-20 09:13] VITALS: BMI 21.6
== END ==
LOC: DHVS 07:39
PROVIDERS: ATTENDING PHYSICIAN Surgery Vascular Surgery; FAMILY PHYSICIAN Family Medicine; OTHER PHYSICIAN Internal Medicine Cardiovascular Disease
DX: I65.23 Occlusion and stenosis of bilateral carotid arteries (principal)
CPT/HCPCS: 93880

== ENCOUNTER 2023-10-20 09:22 | Day surgery (SDC) | payer OTHER, SELFPAY ==
[2023-10-20] VITALS (7 sets, daily range): BP systolic 107–164; BP diastolic 59–71
--- NOTE | 2023-10-20 09:43 | ITS.CL.PACE ---
Bag Grader - Pacemaker Implant
Pacemaker Implant
Procedure Report:
PACEMAKER IMPLANT REPORT
Primary Care Physician: Dr. Uday Yarbrough
Primary Sap Analyst: Dr. Syed Madsen
Date of Procedure: October 20, 2023
Procedure:
1: Dual chamber pacemaker implantation with fluoroscopic guidance
2: Loop recorder explant
Indication/Diagnosis:
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
History: The patient is a 83-year-old man with past medical history significant for coronary artery disease status post CABG, status post carotid endarterectomy, hypertension, hyperlipidemia and unexplained syncope. Loop recorder was placed and
showed a 4-second pause while awake with third-degree AV block. He is referred for dual-chamber pacemaker placement and loop recorder explant.
Antibiotic: Ancef 2 g IV
Sedation: Conscious sedation as per anesthesia staff
Description of Procedure: After informed consent was obtained, 'time out' was called and confirmed, the patient was prepped and draped in a sterile fashion. Lidocaine with epinephrine was used for local anesthesia. Central venous access was
obtained via subclavian venopuncture after a venogram from the left arm confirmed subclavian patency. An incision was made along the left chest and a pre-pectoral pocket was formed. Using a Seldinger technique and peel-away sheaths, the pacing
leads were placed under fluoroscopic guidance. Once testing (see below) showed adequate and stable function, the leads were secured using the suture sleeves. The pocket was liberally irrigated with antibiotic solution. The leads were connected to
the generator header and the leads and generator were placed within the pocket. Fluoroscopy confirmed stable lead position. The pocket was closed in the typical fashion.
I then turned my attention to loop recorder explant. Lidocaine with epi was used for local anesthesia. An incision was made along the prior incision and the LINQ monitor was carefully dissected from the pocket. The pocket was liberally irrigated
with antibiotic solution. The pocket was closed in the typical fashion.
IMPLANTS:
Company: [employer] 8 VIVI, SN: [id number] left Pectoral
RA: [employer]ik Solia S45, SN: [id number], RAA
RV: [employer] Solia S53, SN: [id number], RV apical septum
DEVICE TESTING:
Sensing: RA 2.3 mV, RV 9.3 mV
Capture: RA 0.7 V@0.5ms, RV 0.6 V@0.5ms
Ohms: RA 448, RV 624
FINAL PROGRAMMING
Chuy Pacing: DDD 60-130ppm
Complications: None.
Fluoroscopy Time (min): 8.2
Radiation Dose (mGy): 15.1
DAP (Gy.cm2): 1.8
CONCLUSIONS:
1: Successful implant of dual chamber permanent pacemaker
2: Successful removal of a Linq loop recorder
RECOMMENDATIONS:
1. Routine post-op care (tele, CXR, arm sling).
2. In-Office wound check within 7 days.
3. Office interrogation within 4 weeks.
Copy to: Dr. Uday Yarbrough
--- NOTE | 2023-10-20 12:32 | PTCARENOTE ---
Assumed care of pt upon tsf from CCL post Bi/Vi implant and Loop recorder explant. Pt arrives in room awake alert, Ox3. VSs, CM shows SB with A-pacing, POX 98% on RA. He denies any pain or discomfort. Left pacemaker site intact with steri's and
tegaderm. Immobilizer in place to left arm. Reviewed movement restrictions with LA. He denies any pain or discomfort at tis time.
[2023-10-20] MEDS: FLOMAX 0.4 MG PO (12:57)
[2023-10-20] MEDS: NORVASC 5 MG PO (12:57)
--- NOTE | 2023-10-20 16:02 | CM ---
Chart reviewed. Patient is independent of ADLS, lives in a 2 ST, 1 SARA, 0 DME. Plan is for the patient to return home. CM to follow
[2023-10-20] MEDS: ANCEF 5 IV ×2 (16:10→23:02)
[2023-10-20] MEDS: FLUSH (NSS) 1 FLUSH IV (16:11)
[2023-10-20] MEDS: LIPITOR 20 MG PO (17:27)
[2023-10-20] MEDS: TYLENOL 650 MG PO (19:57)
--- NOTE | 2023-10-20 23:12 | PTCARENOTE ---
L chest wall dressing with small unchanged drainage present since change of shift. Ambulating in the room as a self. Immobilizer in place. Reports adequate pain relief with PRN Tylenol. AP on the monitor.
[2023-10-21 02:19] VITALS: BP 157/71
[2023-10-21] MEDS: TYLENOL 650 MG PO (02:21)
[2023-10-21 03:24] LABS: Hematocrit 39.8 % (39.0-52.0); Hemoglobin 13.9 g/dL (13.0-18.0); Mean Corp Hgb Conc. 34.9 g/dL (33.0-37.0); Mean Corpuscular Volume 91.7 fL (80.0-94.0); Mean Platelet Volume 9.3 fL (7.4-10.4); Platelet Count 152 10^3/uL (130-400); Red Blood Cell Count 4.34 10^6/uL (4.70-6.10); Red Cell Dist. Width 14.3 % (11.5-14.5); White Blood Cell Count 6.7 10^3/uL (4.8-10.8)
[2023-10-21 03:48] LABS: Blood Urea Nitrogen 20 mg/dl (9-20); Carbon Dioxide 22 mmol/L (22-30); Chloride 108 mmol/L (98-107); Estimated Creatinine Clearance 54 ml/min; Glucose 92 mg/dl (70-99); Magnesium 2.3 mg/dl (1.6-2.3); Potassium 4.3 mmol/L (3.5-5.1); Sodium 138 mmol/L (135-145); eGFR > 60.00
[2023-10-21 06:51] VITALS: BP 123/68
--- NOTE | 2023-10-21 08:13 | W.PN.CARDCBS ---
Addendum entered and electronically signed by Jordan Li MD 10/21/23 08:58:
I saw and examined the patient.
The Finance Officer's note was reviewed and I agree with the note.
Comment:
GEN: No distress, awake, Ox3
HEENT: supple, anicteric, mmm
LUNGS: CTA, no wheezes/rales
CV: Reg, S1/S2, 1/6 syst LSB, no gallop
ABD: soft, BS+, NT/ND
EXT: No edema
NEURO: Gross non-focal
SKIN: L dressing intact
Plan:
He is doing well with minimal pain at pacemaker site. Will check pacemaker in the morning.
Hopeful for discharge today. Chest x-ray with no pneumothorax.
Continue aspirin, atorvastatin, amlodipine.
Original Note:
Today's Communication / Plan
-
post DC PPM and linq explant
device interrogation this am
if ok plan for d/c home
Impression / Plan
-
Primary Care Physician: Dr. Uday Yarbrough
Primary Afternoon Nanny: Dr. Syed Madsen
83-year-old man with past medical history significant for coronary artery disease status post CABG, status post carotid endarterectomy, hypertension, hyperlipidemia and unexplained syncope. Loop recorder was placed and showed a 4-second pause
while awake with third-degree AV block. He is referred for dual-chamber pacemaker placement and loop recorder explant.
Impression:
Symptomatic bradycardia/third degree AVB
Syncope
post Loop explant and DC PPM Biotronik 10/20/23
CAD/CABG 2004
HTN
HLD
TIA/CVA 2021
FRANK post R CEA 04/27, L CEA 08/25
Linq implant 07/2023
Plan:
post device site stable with small amount of dry drainage from pacer site
CXR no PTX
tele AV dual paced
Device interrogation this am
HTN continue amlodipine
CAD continue ASA, atorvastatin
Activity restrictions reviewed
inc check Wednesday am
home today after device interrogation
Progress Note - Afternoon Nanny
Subjective
Date of Service: October 21, 2023
mild inc pain relief with tylenol, no cp, sob
Objective
Labs:
10/21/23 02:29
10/21/23 02:29
Labs
Hgb 13.9 g/dL (13.0-18.0) 10/21/23 02:29
Hct 39.8 % (39.0-52.0) 10/21/23 02:29
Plt Count 152 10^3/uL (130-400) 10/21/23 02:29
Sodium 138 mmol/L (135-145) 10/21/23 02:29
Potassium 4.3 mmol/L (3.5-5.1) 10/21/23 02:29
BUN 20 mg/dl (9-20) 10/21/23 02:29
Creatinine 0.8 mg/dL (0.7-1.3) 10/21/23 02:29
Glucose 92 mg/dl (70-99) 10/21/23 02:29
Vital Signs and I&O:
Vital Signs
Temp Pulse Resp BP Pulse Ox
97.6 F 61 18 157/71 97
10/21/23 06:52 10/21/23 02:19 10/21/23 06:52 10/21/23 02:19 10/21/23 06:52
Vital Signs
Temp Pulse Resp BP Pulse Ox
97.6 F 61 18 157/71 97
10/21/23 06:52 10/21/23 02:19 10/21/23 06:52 10/21/23 02:19 10/21/23 06:52
Intake & Output
10/19/23 10/20/23 10/21/23 10/22/23
06:59 06:59 06:59 06:59
Intake Total 240 / 240
Output Total 600 / 600
Balance -360 / -360
Physical Exam
Physical Exam
NAD, AOX3
S1, S2, RRR
CTAB, non labored, no wheeze
SNTND Bsx4
L CW Site with steri strips, scant drainage, dressing removed
Subxiphoid site with steri strips c/d/i
[2023-10-21] MEDS: ASPIR LOW (ENTERIC COATED) 81 MG PO (08:39)
[2023-10-21] MEDS: FLOMAX 0.4 MG PO (08:39)
[2023-10-21 09:42] VITALS: BP 147/68
[2023-10-21] MEDS: NORVASC 5 MG PO (09:42)
[2023-10-21] MEDS: FLUSH (NSS) 1 FLUSH IV (10:35)
[2023-10-21 11:11] VITALS: BP 146/63
--- NOTE | 2023-10-21 12:10 | W.DS.TRANS ---
DC Summary - Feeder Tender
-
Discharge Instructions:
Discharge Diagnosis/Procedures Pacemaker implant, loop explant
Diet Low Cholesterol
Driving Restrictions No driving for 1 week
Bathing Restrictions After seen by
Instructions:
Stand-Alone Forms: DC Inst - Implanted Device
Changes to Home Medications: No
Discharge Medications:
DC Medications w/original date entered in [employer]
amlodipine 5 mg tablet 5 mg PO DAILY Blood pressure 04/07/22
aspirin 81 mg tablet,delayed release 81 mg PO DAILY Blood clot prevention/tx 04/07/22
tamsulosin 0.4 mg capsule 0.4 mg PO DAILY Urinary issue 04/07/22
acetaminophen 325 mg tablet 650 mg (2 x 325 mg) PO Q4HPRN PRN LEE, mild pain, or temp >100.4F #30 tabs 04/10/22
atorvastatin 20 mg tablet 20 mg PO QPM #30 tabs 04/10/22
ciprofloxacin HCl 0.3 % eye drops 1 drp LEFT EYE Q4H Left eye conjunctivitis #5 mL 07/21/23
Home Medication Changes
Pending Results: No
== END 2023-10-21 14:00 | disposition home or self-care (01) ==
LOC: CATH 09:22
PROVIDERS: Nurse Practitioner Adult Health; ATTENDING PHYSICIAN Internal Medicine Interventional Cardiology
DX: I44.2 Atrioventricular block, complete (principal); R00.1 Bradycardia, unspecified; Z95.1 Presence of aortocoronary bypass graft; I25.10 Atherosclerotic heart disease of native coronary artery without angina pectoris; I10 Essential (primary) hypertension; E78.5 Hyperlipidemia, unspecified; Z86.73 Personal history of transient ischemic attack (TIA), and cerebral infarction without residual deficits; Z98.890 Other specified postprocedural states; Z79.01 Long term (current) use of anticoagulants
CPT/HCPCS: 33208; 33286; 71045; 80048; 83735; 85027; 93005; C1785; C1892; C1898; Q9967

== ENCOUNTER → 2024-10-17 07:34 | Outpatient (REF) | payer OTHER, SELFPAY | LOC: RAD 07:34 | PROVIDERS: ATTENDING PHYSICIAN Surgery Vascular Surgery; FAMILY PHYSICIAN Internal Medicine Cardiovascular Disease | DX: I65.23 Occlusion and stenosis of bilateral carotid arteries (principal) | CPT/HCPCS: 93880 ==